=== PATIENT | male | born 1965 | race Caucasian/White ===

== ENCOUNTER 2016-09-16 11:04 | Emergency (ER) | payer BC ==
[2016-09-16 11:20] VITALS: BP 156/120
[2016-09-16] MEDS ORDERED: Diphtheria,Pertussis(Acell),Tetanus Vaccine 0.5 ML SDV IM ONE (11:40)
--- NOTE | 2016-09-16 11:45 | EDM.PDOC ---
ED HPI GENERAL MEDICAL PROBLEM - General Chief Complaint: Bite:Animal, Insect Stated Complaint: DOG BITE TO THE FACE Time Seen by Provider: 09/16/16 11:33 Source of Information: Reports: Patient, Family, RN Notes Reviewed History Limitations: Reports: No Limitations - History of Present Illness INITIAL COMMENTS - FREE TEXT/NARRATIVE: 51-year-old gentleman presents emergency department day following a dog bite, this was done by his own dog, he states his dog's shots are up-to-date he does have a small puncture wound right side of his face bleeding is controlled DENIES Pain Score (Numeric/FACES): 1 - Related Data Allergies Allergy/AdvReac Type Severity Reaction Status Date / Time No Known Allergies Allergy Verified 09/16/16 11:30 Home Meds: Home Meds NK [No Known Home Meds] 09/16/16 [History] Past Medical History - Past Health History Medical/Surgical History: Denies Medical/Surgical History Social & Family History - Tobacco Use Smoking Status *Q: Never Smoker - Recreational Drug Use Recreational Drug Use: No ED ROS GENERAL - Review of Systems Review Of Systems: See Below Constitutional: Reports: No Symptoms Skin: Reports: Wound ED EXAM, ANIMAL BITE - Physical Exam Exam: See Below Text/Narrative:: Examination of the integument system reveals a small puncture wound approximately half millimeter in size right side of the face just inferior to the lower lip it is completely through the dermis Exam Limited By: No Limitations General Appearance: Alert, WD/WN, No Apparent Distress Course - Vital Signs Last Recorded V/S: Last Vital Signs Temp 96.8 F 09/16/16 11:18 Pulse 60 09/16/16 11:18 Resp 14 09/16/16 11:18 BP 156/120 H 09/16/16 11:18 Pulse Ox 100 09/16/16 11:18 - Orders/Labs/Meds Orders: Active Orders 24 hr Category Date Time Status Vaccines to be Administered [RC] PER UNIT ROUTINE Care 09/16/16 11:40 Ordered Diphth,Pertuss(Acell),Tet Vac [Adacel] Med 09/16/16 11:40 Once 0.5 ml IM .ONCE ONE Medication Orders Diphtheria/Tetanus/Acell Pertussis (Adacel) 0.5 ml IM .ONCE ONE Stop: 09/16/16 11:41 Meds: Medications Generic Name Dose Route Start Last Admin Trade Name Timiq PRN Reason Stop Dose Admin Diphtheria/Tetanus/Acell Pertussis 0.5 ml 09/16/16 11:40 Adacel IM 09/16/16 11:41 .ONCE ONE Departure - Departure Time of Disposition: 11:44 Disposition: Home, Self-Care 01 Condition: Good Clinical Impression: Dog bite Qualifiers: Encounter type: initial encounter Qualified Code(s): W54.0XXA - Bitten by dog, initial encounter - Discharge Information Forms: ED Department Discharge Additional Instructions: Take full course of antibiotics, Please followup with your primary care provider in 3-5 days if not better, please call return to the emergency department with worsening of symptoms. - My Orders Last 24 Hours: My Active Orders 09/16/16 11:40 Vaccines to be Administered [RC] PER UNIT ROUTINE Diphth,Pertuss(Acell),Tet Vac [Adacel] 0.5 ml IM .ONCE ONE - Assessment/Plan Last 24 Hours: My Active Orders 09/16/16 11:40 Vaccines to be Administered [RC] PER UNIT ROUTINE Diphth,Pertuss(Acell),Tet Vac [Adacel] 0.5 ml IM .ONCE ONE Plan: Assessment Acuity = acute Site and laterality = facial laceration half millimeter in size completely through the dermis dog bite Etiology = secondary to dog bite Manifestations = none Location of injury = home Lab values = none Plan Because this a puncture wound elected to remain open he was placed on antibiotics of Augmentin the wound was thoroughly flushed, follow-up with primary care in 3-5 days if no improvement, follow wound care instruction sheet , tetanus updated today Patient was in agreement with the plan all questions were answered, they were instructed to return to the emergency department or call for worsening symptoms. This note was dictated using [employer] voice recognition software please call with any questions.
== END 2016-09-16 12:00 | disposition home or self-care (01) ==
LOC: JP.ED 11:04
DX: S01.83XA Puncture wound without foreign body of other part of head, initial encounter (principal); W54.0XXA Bitten by dog, initial encounter
CPT/HCPCS: 90471; 90715; 99283-25

== ENCOUNTER 2020-10-01 08:19 | Emergency (ER) | payer BC ==
[2020-10-01 08:33] VITALS: BP 152/90; PULSE 76
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
== END 2020-10-01 08:54 | disposition home or self-care (01) ==
LOC: JP.ED 08:19
DX: S30.0XXA Contusion of lower back and pelvis, initial encounter (principal); G57.01 Lesion of sciatic nerve, right lower limb; V86.69XA Passenger of other special all-terrain or other off-road motor vehicle injured in nontraffic accident, initial encounter
CPT/HCPCS: 99283